=== PATIENT | male | born 1965 | race Caucasian/White ===

== ENCOUNTER 2018-06-22 09:39 | Outpatient (REF) | payer MEDICAID, SELFPAY ==
[2018-06-22 21:13] LABS: ALT 34 U/L (12-78); AST 20 U/L (15-37); Albumin 3.8 g/dL (3.4-5.0); Alkaline Phosphatase 79 U/L (46-116); Bilirubin, Direct 0.16 mg/dL (0.00-0.20); Bilirubin, Total 0.8 mg/dL (0.2-1.0); Creatine Kinase 112 U/L (39-308); Total Protein 7.1 g/dL (6.4-8.2)
== END 2018-06-22 09:59 ==
LOC: NCHCN 09:39
PROVIDERS: Visit Provider Specialist/Technologist Athletic Trainer
DX: E78.5 Hyperlipidemia, unspecified (principal); Z51.81 Encounter for therapeutic drug level monitoring
CPT/HCPCS: 80076; 82550

== ENCOUNTER 2018-09-21 07:14 | Day surgery (SDC) | payer MEDICAID, SELFPAY ==
--- NOTE | 2018-09-21 06:56 | W.COLOREPORT ---
Date of service: 09/21/18 Time of Service: 08:27 Colonoscopy Report Date of procedure: 09/21/18 Pre-op diagnosis general: Family history/ colon Cancer Screening Post-op diagnosis procedure note: other (descending colon polyp, diverticulosis) Procedure: Colonoscopy with polypectomy with cold forceps Surgeon: Damaris Loredo Anesthesia proc note operative: MAC (Anoop Choudhary CRNA/ ASA 2) Estimated blood loss (mL): 2 Pathology: other (descending colon polyp) Complications: None Disposition: same day Indications: Mr. Edge is a pleasant 53-year-old gentleman who was seen in the office for his first colonoscopy. He does have a paternal uncle with colon cancer. Risks, benefits and complications have been reviewed. Complications include but are not limited to bleeding, pain, perforation, missed small lesion/polyp, sore throat, aspiration and adverse reaction to the medications. Questions were entertained and answered to their satisfaction and they wished to proceed. No guarantees were given or implied. Prep: Miralax/Dulcolax Procedure Start Time: : Procedure End Time: 08:56 Retraction Time: 16 minutes Findings: One sessile polyp in the descending colon sigmoid diverticulosis Procedure Description: After informed consent was obtained the patient was taken to the procedure room and placed in a left decubitous position. Monitors were applied and a time out was done. The patients name, date of , procedure, allergies to medications and metal in their body was reviewed. The patient was then sedated. Once sedated and comfortable a rectal exam was done. External exam was normal. Internal exam revealed a normal sphincter tone and no palpable masses. The prostate felt normal. The scope was then introduced and retro-flexed. No internal hemorrhoids were identified. The scope was then advanced to the cecum without difficulty. The TI and appendiceal orifice were identified. The prep was adequate. The scope was then slowly retracted over 16 minutes back into the rectum. Polyps were removed in the descending colon. There was moderate diverticulosis in the sigmoid colon. The scope was removed and the patient was woken up and taken back to Same day surgery in stable condition. The patient tolerated the procedure well and there were no immediate complications. Follow up: The patient should follow up in 5 years unless they develop changes in bowel habits or other new gastrointestinal complaints.
--- NOTE | 2018-09-21 06:58 | W.PM.DSUDISC ---
Discharge Plan Disposition Patient Disposition: HOME Condition: Good Discharge Details Reason For Visit: Colon Cancer Screening Attending Provider: Damaris Loredo Primary Care Provider: Deandre Baptiste Home Meds and New Rx's Prescriptions: Continued multivitamin with iron [One Daily Multi-Vit w-Mineral] tablet 1 tab PO DAILY RF: 0 omega-3 fatty acids 1,000 mg capsule 1,000 mg PO DAILY RF: 0 lisinopril 10 mg tablet 10 mg PO DAILY RF: 0 atorvastatin 20 mg tablet 20 mg PO DAILY RF: 0 Discontinued bisacodyl [Dulcolax (bisacodyl)] 5 mg tablet,delayed release (DR/EC) 5 mg PO ONCE Qty: 4 RF: 0 polyethylene glycol 3350 17 gram/dose powder 255 g PO ONCE Qty: 255 RF: 0 Discharge Instructions Instructions: Colonoscopy (DC), Diverticulosis (DC), Colorectal Polyps (DC) Additional Instructions: Findings: 1. Diverticulosis 2. Colorectal polyp Follow up: 5 years Please call if you develop: fevers >101.5 Nausea or Vomiting Abdominal pain that is not transient DAY SURGERY UNIT POST COLONOSCOPY INSTRUCTIONS 1. Because there will be medication in your system for the next 24 hours, you may feel a little sleepy. Your coordination will be affected. Therefore: a. Do not drive or operate dangerous equipment for 24 hours. b. Do not drink alcohol beverages for 24 hours (not even beer). c. Plan to go home and rest for the day. 2. Generally there are no restrictions on your activity after a day or so has gone by, but you may feel a bit fatigued for a few days. 3 After you arrive home you may have a light meal and return to a normal diet as you can tolerate it without feeling sick to your stomach. 4. After surgery, you may feel pain or discomfort. This should be only transient, but if it persists please contact your doctor. 5. If there are any questions regarding the findings of your procedure, please feel free to contact your doctor. 6. If you are unable to contact your doctor with a problem, contact the hospital at [phone]. 7. Continue all your regular medications unless directed otherwise. I understand the above instructions and have no questions. Signature of Patient or Responsible Adult Escort Date/Time Name of Responsible Adult Escort Signature of Nurse Date/Time Stand Alone Forms: Amado Shah (DSU) Activity:: Activity as Tolerated Diet:: HIgh Fiber Discharge Orders Discharge Orders: Discharge Order (Routine); Ordered 09/21/18 Ordered By: Damaris Loredo DS: Diagnosis Discharge Diagnosis (1) S/P colonoscopy: Status: Acute (2) Colon polyp: Status: Acute (3) Diverticulosis: Status: Acute
[2018-09-21 07:25] VITALS: BP 155/98; PULSE 74; RESP 16; TEMP 35; O2SAT 97
[2018-09-21] MEDS: Lactated Ringers 1,000 ML 80 ML IV (07:49)
--- NOTE | 2018-09-21 08:49 | BOWEL_PTH ---
PATIENT: Jameson Edge LOC: [facility] U#:[id number] AGE/SX: 53/M ROOM: RE09/21/[address]: Damaris Loredo MD : 1965 BED: DIS: 09/21/2018 SPEC #: [id number] RECD: 09/21/18 12:50 STATUS: LUDY REQ #: [id number] EDGAR: 09/21/18 08:[address]: Damaris Loredo DEPT: Surgical Specimen RECD BY: Trish Ponce ENTERED: 09/21/18 12:51 SP TYPE: Bowel OTHR DR: Deandre Baptiste Tissues: 1 - BIOPSY BOWEL Procedures: GROSS AND MICRO LEVEL 4 Comments: [id number]
[2018-09-21 09:43] VITALS: BP 143/84; PULSE 53; RESP 16; TEMP 35.8; O2SAT 100
== END 2018-09-21 10:36 | disposition home or self-care (01) ==
PROVIDERS: PCP Specialist/Technologist Athletic Trainer; Visit Provider Surgery
PROC: 0DJD8ZZ Inspection of Lower Intestinal Tract, Via Natural or Artificial Opening Endoscopic (ICD-10-PCS; CPT 45378; principal; 2018-09-21 08:15)
DX: Z12.11 Encounter for screening for malignant neoplasm of colon (principal); D12.4 Benign neoplasm of descending colon; K57.30 Diverticulosis of large intestine without perforation or abscess without bleeding; I10 Essential (primary) hypertension
CPT/HCPCS: 45380; 88305

== ENCOUNTER 2019-07-08 14:27 | Outpatient (REF) | payer MEDICAID, SELFPAY ==
[2019-07-08 19:11] LABS: Anion Gap 9.6 mmol/L (3-11); BUN 12 mg/dL (7-18); CO2 27.4 mmol/L (21.0-32.0); CREATININE 0.91 mg/dL (0.70-1.30); Calcium 8.4 mg/dL (8.5-10.1); Calculated LDL 73 mg/dL; Chloride 105 mmol/L (98-107); Cholesterol 170 mg/dL (50-200); Glucose 107 mg/dL (70-100); HDL Cholesterol 39 mg/dL (40-60); Potassium 4.2 mmol/L (3.5-5.1); Sodium 142 mmol/L (136-145); Triglyceride 290 mg/dL (30-150)
== END 2019-07-08 14:47 ==
LOC: NCHCN 14:27
PROVIDERS: PCP Specialist/Technologist Athletic Trainer; Visit Provider Specialist/Technologist Athletic Trainer
DX: E78.5 Hyperlipidemia, unspecified (principal); I10 Essential (primary) hypertension; Z00.00 Encounter for general adult medical examination without abnormal findings
CPT/HCPCS: 80048; 80061

== ENCOUNTER 2020-07-10 16:35 | Outpatient (REF) | payer MEDICAID, SELFPAY ==
[2020-07-10 20:16] LABS: ALT 38 U/L (16-63); AST 21 U/L (15-37); HDL Cholesterol 49 mg/dL (40-60); LDL CHOLESTEROL 114 mg/dL (<100)
[2020-07-10 20:40] LABS: Creatine Kinase 133 U/L (39-308)
[2020-07-10 20:53] LABS: Hemoglobin A1C 5.6 % (<5.7)
[2020-07-13 12:53] LABS: PSA, Screening 1.2 ng/mL (0-3.5)
== END 2020-07-10 16:55 ==
LOC: NCHCN 16:35
PROVIDERS: PCP Specialist/Technologist Athletic Trainer; Visit Provider Nurse Practitioner Family
DX: Z00.00 Encounter for general adult medical examination without abnormal findings (principal); E78.5 Hyperlipidemia, unspecified; I10 Essential (primary) hypertension; Z80.42 Family history of malignant neoplasm of prostate
CPT/HCPCS: 82550; 83721; 84153; 83036; 83718; 84450; 84460

== ENCOUNTER 2021-07-17 15:58 | Outpatient (REF) | payer MEDICAID, SELFPAY ==
[2021-07-17 23:00] LABS: BUN 10 mg/dL (7-18); Calcium 9.2 mg/dL (8.5-10.1); Glucose 99 mg/dL (74-106)
[2021-07-17 23:01] LABS: Calculated LDL 93 mg/dL (<100); Chloride 106 mmol/L (98-107); Cholesterol 192 mg/dL (<200); HDL Cholesterol 56 mg/dL (40-60); Potassium 4.2 mmol/L (3.5-5.1); Sodium 143 mmol/L (136-145); Triglyceride 216 mg/dL (<150)
[2021-07-17 23:02] LABS: ALT 50 U/L (16-63); AST 31 U/L (15-37); Anion Gap 8.7 mmol/L (3-11); CO2 28.3 mmol/L (21.0-32.0); Creatine Kinase 155 U/L (39-308)
[2021-07-18 04:43] LABS: LDL CHOLESTEROL 104 mg/dL (<100)
== END 2021-07-17 15:59 | disposition home or self-care (01) ==
LOC: NCHCN 15:58
PROVIDERS: PCP Specialist/Technologist Athletic Trainer; Visit Provider Nurse Practitioner Family
DX: I10 Essential (primary) hypertension (principal); Z00.00 Encounter for general adult medical examination without abnormal findings
CPT/HCPCS: 80048; 80061; 82550; 83721; 84450; 84460

== ENCOUNTER 2022-07-22 16:48 | Outpatient (REF) | payer MEDICAID, SELFPAY ==
[2022-07-22 19:58] LABS: Hemoglobin A1C 5.6 % (<5.7)
[2022-07-22 20:02] LABS: ALT 34 U/L (16-63); AST 23 U/L (15-37); Anion Gap 7.5 mmol/L (3-11); BUN 11 mg/dL (7-18); CO2 30.5 mmol/L (21.0-32.0); Calcium 9.2 mg/dL (8.5-10.1); Chloride 102 mmol/L (98-107); Estimated GFR 87.78 (mL/min/1.73m2); Glucose 97 mg/dL (74-106); HDL Cholesterol 52 mg/dL (40-60); LDL CHOLESTEROL 101 mg/dL (<100); Sodium 140 mmol/L (136-145)
[2022-07-22 20:45] LABS: Creatine Kinase 112 U/L (39-308)
[2022-07-23 18:16] LABS: PSA, Screening 2.1 ng/mL (<=3.5)
== END 2022-07-22 16:49 | disposition home or self-care (01) ==
LOC: NCHCN 16:48
PROVIDERS: PCP Specialist/Technologist Athletic Trainer; Visit Provider Nurse Practitioner Family
DX: E78.5 Hyperlipidemia, unspecified (principal); Z12.5 Encounter for screening for malignant neoplasm of prostate; Z13.1 Encounter for screening for diabetes mellitus; Z00.00 Encounter for general adult medical examination without abnormal findings
CPT/HCPCS: 80048; 82550; 83721; 84153; 83036; 83718; 84450; 84460

== ENCOUNTER 2023-05-05 06:01 | Day surgery (SDC) | payer MEDICAID, SELFPAY ==
--- NOTE | 2023-05-04 09:36 | HPE_ITS ---
Assessment and Plan Assessment and plan (1) Encounter for screening colonoscopy: Status: Acute Assessment and plan: We reviewed the role of screening colonoscopy as part of routine health maintenance. I think he has a good understanding of the nature of the procedure as well as the risks and benefits. History of Present Illness History of Present Illness Chief Complaint: Screening colonoscopy Narrative: 57 y/o male with history of HTN and diverticulitis presents for colonoscopy screening pre-op. His last screening was in 2019, which was remarkable for tubulovillious adenoma. He describes a distant family history of colon cancer in a paternal uncle and paternal cousin.. He denies any changes in bowel habits including bloody or black tarry stools, abdominal pain, diarrhea or constipation. He denies constitutional symptoms. He denies chest pain, palpitations, dyspnea or dyspnea with exertion. 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 He denies prior history or family history of adverse reactions or complications with anesthesia. The patient denies any history of stroke, VT, seizures, bleeding or clotting disorders. He denies having any implanted metal in his body. [facility] All Active Problems Diverticulosis (Acute ~09/21/18) Colon polyp (Acute ~09/21/18) Encounter for screening colonoscopy (Acute) Medical History Alcohol use Hyperlipidemia Hypertension Tubulovillous adenoma of colon Surgical History S/P colonoscopy (~09/21/18) Social History Smoking/Tobacco Use Status: Never Smoking risk assessment performed?: Yes Alcohol Intake: former Drug use: Never Substance use type: does not use Housing: apartment Do you feel safe at home: Yes Do you feel safe in your relationship?: Yes Meds Allergies and Home Medications Allergies Allergy/AdvReac Type Severity Reaction Status Date / Time No Known Allergies Allergy Verified 05/05/23 06:16 Home Medications Medication Instructions Recorded Confirmed Type atorvastatin 20 mg tablet 20 mg PO DAILY 07/10/18 05/05/23 History lisinopril 10 mg tablet 10 mg PO DAILY 07/10/18 05/05/23 History multivitamin with iron (One Daily 1 tab PO DAILY 07/10/18 05/05/23 History Multivitamins with Minerals tablet) omega-3 fatty acids 1,000 mg 1,000 mg PO DAILY 07/10/18 05/05/23 History capsule Exam Const General: cooperative, healthy appearing and comfortable Orientation: awake and oriented x3 Eyes General: appearance normal, both eyes and all related structures Conjunctivae: conjunctivae normal Sclera: sclerae normal Resp Effort & Inspection: normal respiratory effort and able to speak in complete sentences Auscultation: clear to auscultation bilaterally Cardio Jugular venous pressure: no JVD Rate: regular rate Rhythm: regular rhythm Heart Sounds: S1 normal and S2 normal GI Inspection: non-distended Palpation: soft, no guarding, no hernias and nontender Auscultation: normal bowel sounds Skin General skin exam: normal turgor Neuro General: patient alert, patient awake and patient oriented x3 Cognition: normal cognition Extrem Right lower extremity: no edema Left lower extremity: no edema
--- NOTE | 2023-05-04 09:37 | W.PM.DSUDISC ---
Date of service: 05/05/23 Time of Service: 08:06 Discharge Plan Disposition Patient Disposition: Home Condition: Good Discharge Details Reason For Visit: Screening colonoscopy Attending Provider: Tevin Cabrera Primary Care Provider: Deandre Baptiste Home Meds and New Rx's Prescriptions: Continued multivitamin with iron [One Daily Multi-Vit w-Mineral] tablet 1 tab PO DAILY omega-3 fatty acids 1,000 mg capsule 1,000 mg PO DAILY lisinopril 10 mg tablet 10 mg PO DAILY atorvastatin 20 mg tablet 20 mg PO DAILY Discontinued bisacodyl [Dulcolax (bisacodyl)] 5 mg tablet,delayed release (DR/EC) 5 mg PO ONCE Qty: 4 0RF Rx Instructions: Take per colonoscopy instructions provided by ordering providers office polyethylene glycol 3350 17 gram/dose powder 17 g PO ONCE Qty: 238 0RF Rx Instructions: Take per colonoscopy instructions provided by ordering providers office polyethylene glycol 3350 17 gram/dose powder 238 g PO ONCE Qty: 238 0RF Rx Instructions: take per colonoscopy instructions Discharge Instructions Instructions: Colorectal Polyps (GEN) Additional Instructions: Jameson, we were able to finish your colonoscopy today without any difficulty. Your prep was great neck could see everything just fine. I did find 1 polyp. It was about 20 cm up from your anus. I was able to remove this completely. I will take a week or 2 for them to send me the results regarding the nature of this polyp, and at that time I can give you a call to let you know if you need to do anything differently. Hopefully you will feel well today, and have a great afternoon. Follow the instructions below. If you have any questions at all, please do not hesitate to call or text. 1. If tolerated, consume a soft, low fiber diet for 1-2 days. 2[address] Do not drive, drink alcohol, operate machinery, make critical decisions, or do activities that require coordination or balance for 24 hours. 3. Because air was put into your colon during the procedure, expelling air from your rectum (passing gas or farting) is normal. 4. You may not have a bowel movement for 1-3 days because of the colonoscopy prep. This is normal. 5. Go directly to the emergency room if you notice any of the following: Develop chills (warm to touch), or if you have a thermometer and your temperature is above 101 Difficulty breathing or difficultly swallowing Persistent vomiting Severe abdominal pain, other than gas cramps Severe chest pain Black, tarry stools Any bleeding ? exceeding one tablespoon 6. Call your physician if the site where your intravenous was started becomes red, swollen, painful, and warm to touch. 7. Your physician has reviewed your pre-procedure medications. Please continue to take those medications as previously ordered. You will be given specific information/education regarding any changes to your medications before leaving. Activity:: Activity as Tolerated Diet:: As Tolerated Discharge Orders Discharge Orders: Discharge Order (Routine); Ordered 05/04/23 Ordered By: Tevin Cabrera DS: Diagnosis Discharge Diagnosis (1) Encounter for screening colonoscopy: Status: Acute Asessment and Plan: I will follow-up on polypectomy results
--- NOTE | 2023-05-04 09:38 | COLE_ITS ---
Date of service: 05/05/23 Time of Service: 08:07 Colonoscopy Report Date of procedure: 05/05/23 Pre-op diagnosis general: Screening colonoscopy Post-op diagnosis procedure note: other (Colon polyp) Procedure: Colonoscopy with polypectomy Surgeon: Tevin Cabrera Anesthesia Type: General:No Airway Estimated blood loss (mL): 5 Pathology: other (1 cm colon polyp at 20 cm from the anus) Complications: None Disposition: same day Indications: 57 y/o male with history of HTN and diverticulitis presents for colonoscopy screening pre-op. His last screening was in 2019, which was remarkable for tubulovillious adenoma. He describes a distant family history of colon cancer in a paternal uncle and paternal cousin.. He denies any changes in bowel habits including bloody or black tarry stools, abdominal pain, diarrhea or constipa tion. He denies constitutional symptoms. He denies chest pain, palpitations, dyspnea or dyspnea with exertion. 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 He denies prior history or family history of adverse reactions or complications with anesthesia. The patient denies any history of stroke, [place], seizures, bleeding or clotting disorders. He denies having any implanted metal in his body. Prep: Miralax/Dulcolax Procedure Start Time: 07:29 Procedure End Time: 07:47 Retraction Time: 12 Findings: 1 cm polyp at 20 cm from the anus Procedure Description: After the induction of monitored anesthetic care, and with the patient in left lateral decubitus position, I began by performing an external anorectal exam.? Perineum and skin were normal, as was the anal verge.? There was no evidence of external hemorrhoids.? Next, I performed a digital rectal exam.? I did not appreciate any abnormal findings.? Next, I advanced a colonoscope into the rectal vault.? I performed retroflexion.? This was normal.? Using insufflation, I then advanced the colonoscope beyond the rectal folds and into the sigmoid colon before advancing towards the cecum.? The quality of the prep was excellent.? The scope was noted to be in the cecum by identification of the ileocecal valve and appendiceal orifice.? I then began withdrawing the colonoscope using repeated irrigation as necessary for full evaluation of the colonic mucosa. Around 20 cm from the anal verge I identified a 1 cm polyp. ?It appeared bilobed in character. ?I was able to remove this with a cold snare polypectomy and 2 portions. ?I examined the site, and there was minimal bleeding. ?Once this was completed, I continued to withdraw the scope and examine the remainder of the colonic mucosa.?Once the scope was withdrawn to the level of the rectum, great care was taken to examine portions of the rectal folds.? Finally, the scope was withdrawn and the patient was brought to the same-day surgery recovery unit as the anesthetic wore off. ?The findings and instructions were shared with the patient prior to discharge.
[2023-05-05 06:12] VITALS: BP 138/91; PULSE 60; RESP 17; TEMP 36.4; O2SAT 96
[2023-05-05] MEDS: Lactated Ringers 1,000 ML 80 ML IV (06:31)
--- NOTE | 2023-05-05 07:04 | W.ANESPRE ---
General Info Date of Service Date Performed: 05/05/23 Height: 5 ft 8 in Weight: 90.8 kg Body Mass Index (BMI): 30.4 Surgical Procedure: Operation Date: 05/05/23 07:35 Proposed Procedure Side Surgeon p Colonoscopy Tevin Cabrera MD Actual Procedure Side Surgeon p Colonoscopy Not Applicable Tevin Cabrera MD Pre-Op Diagnosis Post-Op Diagnosis SCREENING Meds Allergies and Home Medications Allergies Allergy/AdvReac Type Severity Reaction Status Date / Time No Known Allergies Allergy Verified 05/05/23 06:16 Home Medication Medication Instructions Recorded atorvastatin 20 mg tablet 20 mg PO DAILY 07/10/18 lisinopril 10 mg tablet 10 mg PO DAILY 07/10/18 multivitamin with iron (One Daily 1 tab PO DAILY 07/10/18 Multivitamins with Minerals tablet) omega-3 fatty acids 1,000 mg 1,000 mg PO DAILY 07/10/18 capsule Current Visit Medications: Current Medications Generic Name Dose Route Start Last Admin Trade Name Freq PRN Reason Stop Dose Admin Hyoscyamine Sulfate 0.125 mg 05/04/23 09:39 Hyoscyamine 0.125 Mg Sl/Oral/Chew SL 06/03/23 09:38 DIRECTED PRN Ringer's Solution 1,000 mls @ 80 mls/hr 05/05/23 06:00 05/05/23 06:31 IV 06/01/23 23:59 80 mls/hr INFUSION SREEKANTH Administration IV Miscellaneous Supplies 1 each 05/05/23 06:00 Iv Access IV 06/01/23 23:59 DIRECTED SREEKANTH Ondansetron HCl 4 mg 05/04/23 09:39 Ondansetron 4 Mg/2 Ml Vial IVP 06/03/23 09:38 Q4H PRN PRN Nausea / Vomiting Sodium Chloride 0 ml 05/05/23 06:00 Normal Saline Flush 10 Ml Syr IV 06/01/23 23:59 PRN PRN Sodium Chloride 0 ml 05/05/23 06:00 Normal Saline 10 Ml Vial IJ 06/01/23 23:59 DIRECTED PRN Sterile Water 0 ml 05/05/23 06:00 Water,Injection,Sterile 10 Ml Vial IJ 06/01/23 23:59 DIRECTED PRN PFSH Active Problems Active Problems: Problem Status Onset Code Diverticulosis ~09/21/18 K57.90 Colon polyp ~09/21/18 K63.5 Encounter for screening colonoscopy Z12.11 Medical History Medical History Alcohol use Hyperlipidemia Hypertension Tubulovillous adenoma of colon Surgical History Surgical History S/P colonoscopy (~09/21/18) Tobacco Smoking/Tobacco Use Status: Never Alcohol Alcohol Intake: former Substance Use Substance use: Never Substance use type: does not use Vital Signs and Lab Results Vital Signs Most Recent Vital Signs in EMR: Most Recent Vital Signs Temp Pulse Resp BP Pulse Ox 36.4 C L 60 17 138/91 H 96 05/05/23 06:12 05/05/23 06:12 05/05/23 06:12 05/05/23 06:12 05/05/23 06:12 Lab Results Blood Type / Crossmatch: No Data to Display Complete Blood Count: No Data to Display Complete Metabolic Panel: No Data to Display Liver Function Panel: No Data to Display Coagulation Panel: No Data to Display Cardiac Panel: No Data to Display Arterial Blood Gas: No Data to Display Venous Blood Gas: No Data to Display Pancreas Panel: No Data to Display Thyroid Panel: No Data to Display Infectious Disease: No Data to Display Blood Cultures: No Data to Display Toxicology Panel: No Data to Display Anesthesia Assessment and Plan Anesthesia History Personal History: No History of Anesthesia Complications Family History: No Family History of Anesthesia Complications Exercise Tolerance Exercise Tolerance: Metabolic Equivalents>4 Pertinent Negatives Pertinent Negatives: No Symptoms of GERD, No Major Cardiovascular Symptoms or Complaints and No Major Pulmonary Symptoms or Complaints Cardiac & Pulmonary Exam Cardiac Exam: Normal S1/S2 Heart Sounds Pulmonary Exam: Clear Bilateral Breath Sounds Implantable Cardiac Device Does patient have a Pacemaker or an ICD?: No Airway Exam Known Difficult Airway: No Mallampati Class: 2 Mouth Opening: Normal (> 3cm) Thyromental Distance: Greater than 3 cm Neck Range of Motion: Full ROM Neck Circumference: Normal Teeth Condition: Normal Dentition ASA Classification ASA Score: ASA 2 Emergency Case?: No NPO Status NPO Status: NPO Clears >2 hours, Solids >8 hours Anesthesia Plan Resuscitation Status: Full Code Anesthesia Technique: General Anesthesia Airway Planned: Natural Airway Monitors Used: Standard Monitors
[2023-05-05 07:06] VITALS: BMI 30.4
--- NOTE | 2023-05-05 07:42 | BOWEL_PTH ---
PATIENT: Jameson Edge LOC: [facility] U#:[id number] AGE/SX: 58/M ROOM: RE05/05/[address]: Tevin Cabrera MD : 1965 BED: DIS: 05/05/2023 SPEC #: [id number] RECD: 05/05/23 12:21 STATUS: LUDY RE #: [id number] EDGAR: 05/05/23 07:[address]: Tevin Cabrera DEPT: Surgical Specimen RECD BY: Trish Ponce ENTERED: 05/05/23 12:21 SP TYPE: Bowel OTHR DR: Deandre Baptiste Tissues: 1 - BIOPSY BOWEL Procedures: GROSS AND MICRO LEVEL 4 Comments: [id number]
[2023-05-05 07:53] VITALS: BP 119/82; PULSE 69; RESP 16; TEMP 36.5; O2SAT 92
[2023-05-05 08:22] VITALS: BP 133/86; PULSE 63; RESP 18; TEMP 36.2; O2SAT 95
--- NOTE | 2023-05-05 08:36 | W.ANESPOSTOP ---
Postoperative Evaluation Date, Time and Location Date Performed: 05/05/23 Time Performed: 08:12 Patient Location: Day Surgery Unit Vital Signs Most Recent Imported Vital Signs: Most Recent Vital Signs Temp Pulse Resp BP Pulse Ox 36.2 C L 63 18 133/86 95 05/05/23 08:22 05/05/23 08:22 05/05/23 08:22 05/05/23 08:22 05/05/23 08:22 Pain Score Most Recent Pain Score: Most Recent Pain Score Pain Level 0 05/05/23 08:22 Assessment Mental Status: Awake (Alert & Oriented to Patient Baseline) Airway and Respiratory Function: Patent airway with normal (patient baseline) respiratory exam Cardiovascular Function: Hemodynamically Stable Hydration Status: Adequately Hydrated Nausea & Vomiting: No Nausea or Vomiting Pain: Pt. Denies Any Pain Peripheral Nerve Block: Patient did not receive a nerve block
== END 2023-05-05 08:28 | disposition home or self-care (01) ==
PROVIDERS: PCP Specialist/Technologist Athletic Trainer; Visit Provider Surgery
PROC: 0DJD8ZZ Inspection of Lower Intestinal Tract, Via Natural or Artificial Opening Endoscopic (ICD-10-PCS; CPT 45378; principal; 2023-05-05 07:30)
DX: Z12.11 Encounter for screening for malignant neoplasm of colon (principal); D12.5 Benign neoplasm of sigmoid colon; Z86.010 Personal history of colon polyps; Z80.0 Family history of malignant neoplasm of digestive organs; I10 Essential (primary) hypertension
CPT/HCPCS: 45385; 88305

== ENCOUNTER 2023-07-23 15:34 | Outpatient (REF) | payer MEDICAID, SELFPAY ==
[2023-07-23 20:28] LABS: Anion Gap 7.5 mmol/L (3-11); BUN 11 mg/dL (7-18); CO2 27.5 mmol/L (21.0-32.0); CREATININE 1.1 mg/dL (0.70-1.30); Calcium 9.5 mg/dL (8.5-10.1); Calculated LDL 112 mg/dL (<100); Chloride 105 mmol/L (98-107); Cholesterol 189 mg/dL (<200); Estimated GFR 77.81 (mL/min/1.73m2); Glucose 108 mg/dL (74-106); HDL Cholesterol 55 mg/dL (40-60); Potassium 4.7 mmol/L (3.5-5.1); Sodium 140 mmol/L (136-145); Triglyceride 113 mg/dL (<150)
== END 2023-07-23 15:35 | disposition home or self-care (01) ==
LOC: NCHCN 15:34
PROVIDERS: PCP Nurse Practitioner Family; Visit Provider Nurse Practitioner Family
DX: E78.5 Hyperlipidemia, unspecified (principal)
CPT/HCPCS: 80048; 80061; 84153

== ENCOUNTER 2024-07-29 17:07 | Outpatient (REF) | payer MEDICAID, SELFPAY ==
[2024-07-29 19:35] LABS: ALT 28 U/L (16-63); AST 29 U/L (15-37); Albumin 3.9 g/dL (3.4-5.0); Alkaline Phosphatase 95 U/L (46-116); Anion Gap 2.9 mmol/L (3-11); BUN 12 mg/dL (7-18); Bilirubin, Total 0.55 mg/dL (0.2-1.0); CO2 29.1 mmol/L (21.0-32.0); Calcium 9.1 mg/dL (8.5-10.1); Chloride 107 mmol/L (98-107); Glucose 107 mg/dL (74-106); Potassium 4.9 mmol/L (3.5-5.1); Sodium 139 mmol/L (136-145); Total Protein 7.5 g/dL (6.4-8.2)
[2024-07-29 19:46] LABS: Hemoglobin A1C 5.4 % (<5.7)
[2024-07-30 18:27] LABS: PSA, Screening 1.8 ng/mL (<=3.5)
== END 2024-07-29 17:08 | disposition home or self-care (01) ==
LOC: NCHCN 17:07
PROVIDERS: PCP Nurse Practitioner Family; Visit Provider Nurse Practitioner Family
DX: Z13.1 Encounter for screening for diabetes mellitus (principal); Z12.5 Encounter for screening for malignant neoplasm of prostate; E78.5 Hyperlipidemia, unspecified
CPT/HCPCS: 80053; 84153; 83036

== ENCOUNTER 2025-08-01 20:11 | Outpatient (REF) | payer MEDICAID, SELFPAY ==
[2025-08-01 20:07] LABS: ALT 31 U/L (10-49); AST 25 U/L (<34); Albumin 4.5 g/dL (3.4-5.0); Alkaline Phosphatase 90 U/L (46-116); Anion Gap 5.9 mmol/L (3-11); BUN 17 mg/dL (9-23); Bilirubin, Total 0.60 mg/dL (0.2-1.2); CO2 26.1 mmol/L (20.0-31.0); Calcium 9.1 mg/dL (8.3-10.6); Chloride 107 mmol/L (98-107); Cholesterol 195 mg/dL (<200); Glucose 85 mg/dL (74-106); HDL Cholesterol 44 mg/dL (>40); Potassium 4.5 mmol/L (3.5-5.1); Sodium 139 mmol/L (136-145); Total Protein 7.2 g/dL (5.7-8.2)
[2025-08-02 20:28] LABS: HIV-1/2 Ag & Ab Screen Negative (Negative)
[2025-08-02 20:33] LABS: Hepatitis C Ab w Rflx HCV PCR Negative (Negative)
== END 2025-08-01 20:12 | disposition home or self-care (01) ==
LOC: NCHCN 20:11
PROVIDERS: Visit Provider Nurse Practitioner Family
DX: Z00.00 Encounter for general adult medical examination without abnormal findings (principal); I10 Essential (primary) hypertension; E78.5 Hyperlipidemia, unspecified
CPT/HCPCS: 80053; 80061; 83721; 86803; 87389

== ENCOUNTER 2025-08-02 10:31 | Outpatient (REF) | payer MEDICAID, SELFPAY | END 2025-08-02 10:32 | disposition home or self-care (01) | LOC: NCHCN 10:31 | PROVIDERS: Visit Provider Nurse Practitioner Family | DX: R39.9 Unspecified symptoms and signs involving the genitourinary system (principal) | CPT/HCPCS: 87086 ==

== ENCOUNTER 2025-09-07 10:06 | Outpatient (REF) | payer MEDICAID, SELFPAY ==
[2025-09-07 18:52] LABS: Cholesterol 156 mg/dL (<200); HDL Cholesterol 38 mg/dL (>or=40)
[2025-09-07 19:20] LABS: Hemoglobin A1C 5.4 % (<5.7)
[2025-09-09 17:58] LABS: PSA, Screening 2.8 ng/mL (<=4.5)
== END 2025-09-07 10:07 | disposition home or self-care (01) ==
LOC: NCHCN 10:06
PROVIDERS: Visit Provider Nurse Practitioner Family
DX: E78.5 Hyperlipidemia, unspecified (principal); Z80.42 Family history of malignant neoplasm of prostate; Z13.1 Encounter for screening for diabetes mellitus
CPT/HCPCS: 80061; 84153; 83036